=== PATIENT | female | born 1965 | race Caucasian/White ===

== ENCOUNTER 2016-11-10 16:48 | Observation (INO) ==
--- NOTE | 2016-11-10 17:41 | Emergency Department Note ---
Disposition Clinical Impression: Dehydration, Urinary tract infection, Conjunctivitis Disposition: Admitted As Inpatient Condition: Fair Referrals: Mamadou Marcus MD [Primary Care Provider] - Forms: ED Satisfaction Letter Time of Disposition: 21:05 (ok osv) Female Urogenital HPI - General Chief complaint: ED Urogenital-Female Stated complaint: unable to urinate properly, weakness Time Seen by Provider: 11/10/16 16:55 Source: patient Mode of arrival: ambulatory Limitations: no limitations Nursing Notes Reviewed: Yes Vital Signs Reviewed: Yes - History of Present Illness HPI Narrative: 51-year-old female seen a couple days ago for urinary tract infection. Possibly passed kidney stone now presents back to the emergency room stating that she is having flank pain dysuria urgency frequency going small amounts and has not really gone much today denies any blurred vision double was loss vision chest pinches pressure palpitations cough hemoptysis or sputum production Pt Subjective Complaint: dysuria, "UTI" Onset (ago): day(s) (3-4) Location: suprapubic Severity: moderate Severity scale (1-10): 5 Quality: cramping Improves with: none Worsens with: urination Urinary Symptoms: dysuria, urgency, frequency, foul smelling urine - Related Data Home Medications Medication Instructions Recorded Confirmed Acetaminophen/Butalbital/Caffe 1 tab PO DAILY PRN 05/10/15 10/26/16 [Fioricet] Albuterol Sulfate [Albuterol 2 puff IH BID PRN 05/10/15 10/26/16 Inhaler] Amitriptyline [Elavil] 25 mg PO HS 05/10/15 10/26/16 Clopidogrel [Plavix] 75 mg PO DAILY 05/10/15 10/26/16 Cyanocobalamin (B-12) [Vitamin B12] 1,000 mcg IM QMONTH 05/10/15 10/26/16 Duloxetine HCl [Cymbalta] 60 mg PO DAILY 05/10/15 10/26/16 Gabapentin [Neurontin] 800 mg PO TID 05/10/15 10/26/16 Levothyroxine [Synthroid] 50 mcg PO DAILY 05/10/15 10/26/16 Lisinopril [Zestril] 40 mg PO DAILY 05/10/15 10/26/16 Oxybutynin [Ditropan] 15 mg PO BID 05/10/15 10/26/16 Oxygen 2 l .ROUTE DAILY 05/10/15 10/26/16 Simvastatin [Zocor] 20 mg PO HS 05/10/15 10/26/16 Nitroglycerin [Nitrostat] 0.4 mg SL AD PRN 03/08/16 10/26/16 Fluticasone Propionate Nasal 50 mcg NS HS 05/15/16 10/26/16 [Flonase] Isosorbide MONOnitrate (24 HR) 30 mg PO DAILY 05/15/16 10/26/16 [Imdur] Norethindrone Acetate 5 mg PO DAILY 05/15/16 10/26/16 Docusate [Colace] 100 mg PO BID 10/26/16 10/26/16 Lidocaine Patch [Lidoderm 5% patch] 1 each TP DAILY 10/26/16 10/26/16 Metoprolol [Lopressor] 25 mg PO BID 10/26/16 10/26/16 Polyethylene Glycol 3350 [MiraLAX 1 scoop PO DAILY 10/26/16 10/26/16 Powder Bulk 17.9 Oz] Simethicone [Gas Relief] 125 mg PO QID PRN 10/26/16 10/26/16 Zonisamide [Zonegran] 100 mg PO DAILY 10/26/16 10/26/16 Previous Rx's Medication Instructions Recorded Cholecalciferol (D-3) [Vitamin D] 2,000 unit PO DAILY #60 tablet 03/17/16 Ferrous Sulfate 325 mg PO TIDWM 30 Days 05/17/16 HYDROcodone/Acet 5/325 mg [[place] 1 tab PO Q6H PRN #28 tab 10/26/16 5-325 mg] Ondansetron [Zofran] 8 mg PO Q8HR #10 tablet 10/26/16 Docusate Sodium [Colace] 100 mg PO BID #20 capsule 11/07/16 Ketorolac [Toradol] 10 mg PO Q6HR #15 tablet 11/07/16 Sulfamethoxazole/Trimeth DS 1 each PO BID #28 tablet 11/07/16 [Bactrim DS] Allergies Allergy/AdvReac Type Severity Reaction Status Date / Time ciprofloxacin Allergy Gastrointestinal Verified 10/26/16 12:31 Upset Penicillins [PCN] AdvReac Intermediate Gastrointestinal Verified 10/26/16 12:31 Upset aspirin [ASA] AdvReac Mild Gastrointestinal Verified 10/26/16 12:31 Upset All systems ED: reviewed and negative except as stated. Constitutional: Reports: fever, chills. Denies: weakness Eyes: Reports: eye discharge ENT ED: Denies: ear pain, throat pain, congestion Cardiovascular: Denies: chest pain, palpitations Respiratory: Denies: dyspnea Gastrointestinal: Denies: abdominal pain, nausea Genitourinary: Reports: urgency, dysuria, frequency, other (decresed amount) Musculoskeletal: Denies: neck pain Integumentary: Denies: abrasion Neurological: Denies: headache Psychiatric: Denies: anxiety Endocrine: Denies: heat or cold intolerance Hematological/Lymphatic: Denies: easy bruising Allergic/Immunologic: Denies: facial swelling Past Medical History - Past Medical History Attestation: Yes The following information was validated with the patient. Source: patient, old records reviewed, nursing notes reviewed Medical history: Reports: arthritis, asthma, cancer, CVA, diabetes, GERD, hyperlipidemia, hypertension, migraine, myocardial infarction, renal disease, thyroid disease, TIA, other Surgical history: Reports: breast surgery, , cataract, other Psychiatric history: Reports: anxiety, depression FIRER BISQUE KILN history: Reports: no FIRER BISQUE KILN history, other - Social History Smoking Status: Former smoker Smokeless Tobacco Status: No Alcohol use: Reports: none Drug use: Reports: none Physical Exam - General Limitations: no limitations General appearance: alert, in no apparent distress, anxious, obese - Head Head exam: atraumatic, normocephalic, normal inspection - Eye Eye exam: Present: PERRL, EOMI, conjunctival injection - ENT ENT exam: normal exam, normal oropharynx, mucous membranes moist, TM's normal bilaterally, normal external ear exam - Neck Neck exam: Present: normal inspection, full ROM, trachea midline - Chest Chest inspection: Present: normal inspection, symmetric chest wall rise - Respiratory Respiratory exam: Present: normal lung sounds bilaterally, wheezes, prolonged expiratory phase. Absent: respiratory distress - Cardiovascular Cardiovascular exam: Present: regular rate, normal rhythm, normal heart sounds - Abdominal Exam Abdominal exam: Present: soft, Non-Tender, normal bowel sounds. Absent: mass, pulsatile mass - Extremities Exam Extremities exam: Present: normal inspection, full ROM, normal capillary refill. Absent: tenderness, joint swelling - Expanded Lower Extremity Exam Neurovascular/Tendon exam: Present: normal capillary refill, normal fine/light touch Gait: observed and normal - Back Exam Back exam: Present: normal inspection, full ROM. Absent: muscle spasm - Neurological Exam Neurological exam: Present: alert, oriented X3, CN II-XII intact, normal gait - Psychiatric Psychiatric exam: Present: normal affect, normal mood - Skin Skin exam: Present: warm, dry, intact, normal color Course Course Narrative: pt seen and examined and iv fluids and antibiotics started on eye drops for conjunctivitis due to renal insufficiency new recommended iv hydration and ab' s then home Vital Signs Temperature 97.9 F 11/10/16 16:55 Pulse Rate 89 11/10/16 16:55 Respiratory Rate 18 11/10/16 16:55 Blood Pressure 127/79 11/10/16 16:55 O2 Sat by Pulse Oximetry 95 11/10/16 16:55 Temperature 97.9 F 11/10/16 16:59 Pulse Rate 89 11/10/16 16:59 Respiratory Rate 18 11/10/16 16:59 Blood Pressure 127/79 11/10/16 16:59 O2 Sat by Pulse Oximetry 95 11/10/16 16:59 Oxygen Delivery Oxygen Delivery Room Air Urogenital-Female - MDM Narrative Medical decision making narrative: Pyelonephritis failed outpatient therapy dehydration and acute - Differential Diagnosis Likely: urinary tract infection - Medical Records Medical records reviewed: Yes I reviewed the patient's medical records. - Lab Data Lab results reviewed: Yes I reviewed the patient's lab results. Result diagrams: 11/10/16 19:34 11/10/16 19:34 Lab Results 11/10/16 11/10/16 11/10/16 Range/Units 17:49 19:34 19:34 WBC 7.1 (4.3-11.1) K/mcL RBC 4.15 (3.82-4.97) M/mcL Hgb 11.3 L (11.5-15.4) g/dL Hct 36.1 (35.3-44.9) % MCV 87.0 (83.0-100.0) fL MCH 27.2 L (28.0-33.3) pg MCHC 31.3 L (31.6-35.5) g/dL RDW 18.2 H (11.5-14.5) % Plt Count 333 (140-400) K/mcL MPV 9.1 L (9.4-12.4) fL Immature Gran % 0.3 (0-4) % Seg Neutrophils % 59.8 % Lymphocytes % 30.9 % Monocytes % 6.5 % Eosinophils % 2.1 % Basophils % 0.4 % Neutrophils # 4.3 (1.6-8.9) K/mcL Lymphocytes # 2.2 (0.6-4.6) K/mcL Monocytes # 0.5 (0.0-1.3) K/mcL Eosinophils # 0.2 (0.0-0.6) K/mcL Basophils # 0.0 (0.0-0.2) K/mcL Sodium 138 (136-145) mEq/L Potassium 4.9 H (3.5-4.5) mEq/L Chloride 112 H (98-109) mEq/L Carbon Dioxide 14 L (19-29) mEq/L BUN 38 H (7-20) mg/dL Creatinine 2.31 H (0.57-1.11) mg/dL Est GFR ( Amer) 27 L (> 60) Est GFR (Non-Af Amer) 22 L (> 60) BUN/Creatinine Ratio 16 (6-26) Glucose 101 H (70-99) mg/dL Calculated Osmolality 295 (280-300) Calcium 8.7 (8.6-10.8) mg/dL Urine Color Yellow (Yellow) Urine Clarity Cloudy A (Clear) Urine pH 5.0 (5.0-8.0) pH Units Ur Specific Jerome >= 1.030 H (1.010-1.025) Urine Protein 30 H (Neg-Trace) mg/dL Urine Glucose (UA) Normal (Normal) mg/dL Urine Ketones 15 H (Negative) mg/dL Urine Blood Trace-intact H (Negative) Urine Nitrite Negative (Negative) Urine Bilirubin Large H (Negative) Urine Urobilinogen Normal (Normal) mg/dL Ur Leukocyte Esterase Small H (Negative) Urine Microscopic WBC 50-100 H (0-3) per hpf Ur Squamous Epith Cells Moderate H (None-Few) per lpf Urine Bacteria Few (None-Few) per hpf Ur Culture Indicated? YES A (NO) Critical Care Time Critical Care Time: No
[2016-11-10 17:57] LABS: Bilirubin,Urine Large (Negative); Blood,Urine Trace-intact (Negative); Clarity,Urine Cloudy (Clear); Color,Urine Yellow (Yellow); Glucose,Urine (UA) Normal (Normal); Ketones,Urine 15 mg/dL (Negative); Leukocyte Esterase,Urine Small (Negative); Nitrite,Urine Negative (Negative); Protein,Urine 30 mg/dL (Neg-Trace); Specific Gravity,Urine >= 1.030 (1.010-1.025); Urobilinogen,Urine Normal (Normal)
[2016-11-10 18:00] LABS: Squamous Epithelial Cell,Urine Moderate per lpf (None-Few); WBC,Urine 50-100 per hpf (0-3)
[2016-11-10 18:01] LABS: Bacteria,Urine Few per hpf (None-Few)
[2016-11-10] MEDS ORDERED: CefTRIAXone 1,000 MG in D5% in Water (Mini-Bag+) 100 ML IVPB STA (19:04)
[2016-11-10] MEDS ORDERED: 0.9 % Sodium Chloride 1,000 ML IVC ONE (19:04)
[2016-11-10 19:43] LABS: Basophils % 0.4 %; Eosinophils # 0.2 K/mcL (0.0-0.6); Eosinophils % 2.1 %; Hematocrit 36.1 % (35.3-44.9); Hemoglobin 11.3 g/dL (11.5-15.4); Immature Granulocytes % 0.3 % (0-4); Lymphocytes # 2.2 K/mcL (0.6-4.6); Lymphocytes % 30.9 %; Mean Corpuscular HGB Conc 31.3 g/dL (31.6-35.5); Mean Corpuscular Hemoglobin 27.2 pg (28.0-33.3); Mean Platelet Volume 9.1 fL (9.4-12.4); Monocytes # 0.5 K/mcL (0.0-1.3); Monocytes % 6.5 %; Neutrophils # 4.3 K/mcL (1.6-8.9); Platelet Count 333 K/mcL (140-400); Red Blood Count 4.15 M/mcL (3.82-4.97); Red Cell Distribution Width 18.2 % (11.5-14.5); Segmented Neutrophils % 59.8 %
[2016-11-10 19:58] LABS: Calcium 8.7 mg/dL (8.6-10.8); Potassium 4.9 mEq/L (3.5-4.5)
[2016-11-10] MEDS ORDERED: Nicotine 21 MG PATCH.TD24 TD SCH (21:15)
[2016-11-10] MEDS ORDERED: Ondansetron 4 MG/2 ML VIAL IVP PRN (22:19)
[2016-11-10] MEDS ORDERED: Acetaminophen 325 MG TABLET PO PRN (22:19)
[2016-11-10] MEDS ORDERED: Simethicone 80 MG TAB.CHEW PO PRN (22:19)
[2016-11-10] MEDS ORDERED: Naloxone 0.4 MG/ML INJ IVP PRN (22:19)
[2016-11-10] MEDS ORDERED: Nitroglycerin 0.4 MG TAB.SUBL SL PRN (22:19)
[2016-11-10] MEDS ORDERED: Acetaminophen/Butalbital/CaffeineTABLET PO PRN (22:19)
[2016-11-10] MEDS: 0.9 % Sodium Chloride 1,000 ML IVC SCH (23:33)
[2016-11-11 05:43] LABS: Basophils % 0.4 %; Eosinophils # 0.1 K/mcL (0.0-0.6); Eosinophils % 2.5 %; Hematocrit 35.4 % (35.3-44.9); Hemoglobin 10.8 g/dL (11.5-15.4); Immature Granulocytes % 0.4 % (0-4); Lymphocytes # 1.9 K/mcL (0.6-4.6); Lymphocytes % 33.2 %; Mean Corpuscular HGB Conc 30.5 g/dL (31.6-35.5); Mean Corpuscular Hemoglobin 27.5 pg (28.0-33.3); Mean Corpuscular Volume 90.1 fL (83.0-100.0); Mean Platelet Volume 9.1 fL (9.4-12.4); Monocytes # 0.5 K/mcL (0.0-1.3); Monocytes % 8.5 %; Neutrophils # 3.1 K/mcL (1.6-8.9); Platelet Count 256 K/mcL (140-400); Red Blood Count 3.93 M/mcL (3.82-4.97); Red Cell Distribution Width 18.1 % (11.5-14.5)
[2016-11-11 05:56] LABS: Potassium 4.4 mEq/L (3.5-4.5)
[2016-11-11] MEDS: 0.9 % Sodium Chloride 1,000 ML IVC SCH ×2 (07:40→18:49)
[2016-11-11] MEDS ORDERED: NON-FORMULARY MEDICATION 1 EACH EACH (Oxygen [Oxygen] 2 L) SCH (09:00)
[2016-11-11] MEDS ORDERED: Gabapentin 400 MG CAPSULE PO SCH (09:00)
[2016-11-11] MEDS: Isosorbide MONOnitrate (24 HR) 30 MG TAB.ER.24H PO SCH (09:33)
[2016-11-11] MEDS: Lisinopril 20 MG TABLET PO SCH (09:37)
[2016-11-11] MEDS: Levothyroxine 25 MCG TABLET PO SCH (09:45)
[2016-11-11] MEDS: Nicotine 21 MG PATCH.TD24 TD SCH (09:48)
[2016-11-11] MEDS ORDERED: Furosemide 20 MG/2 ML VIAL IVP ONE (11:46)
[2016-11-11 12:25] LABS: ABG HCO3 18.3 mEQ/L (21-27); ABG PCO2 38 mmHg (35-45); ABG PO2 101 mmHg (85-104)
[2016-11-11 12:26] LABS: ABG Base Excess -8.2 mEq/L (-2.0 to 3.0); ABG Oxygen Saturation 97 % (95-98); ABG TCO2 19.5 mEq/L (20-26); Blood Gas FiO2 28 %; Blood Gas Liter Flow 2 L/MIN
[2016-11-11] MEDS ORDERED: Tobramycin/Dex Opth DROPS 2.5 ML BOTTLE RIGHT EYE SCH (15:30)
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
[2016-11-11] MEDS: Tobramycin/Dex Opth DROPS 2.5 ML BOTTLE BOTH EYES SCH ×2 (17:09→23:31)
[2016-11-11] MEDS: [UNRECOGNIZED DRUG - OTHER] BOTH EYES SCH ×2 (18:50→18:51)
[2016-11-11] MEDS: Fluticasone Propionate Nasal 50 MCG/SPRAY BOTTLE NS SCH (23:35)
[2016-11-12] MEDS: *HR* HYDROcodone/Acet 5/325 mg TABLET PO PRN ×3 (01:46→23:19)
[2016-11-12] MEDS: Levothyroxine 25 MCG TABLET PO SCH (05:45)
[2016-11-12 06:00] LABS: Basophils % 0.3 %; Eosinophils # 0.1 K/mcL (0.0-0.6); Eosinophils % 3.7 %; Hematocrit 34.3 % (35.3-44.9); Hemoglobin 10.2 g/dL (11.5-15.4); Immature Granulocytes % 0.3 % (0-4); Lymphocytes # 1.4 K/mcL (0.6-4.6); Mean Corpuscular HGB Conc 29.7 g/dL (31.6-35.5); Mean Corpuscular Hemoglobin 27.3 pg (28.0-33.3); Mean Corpuscular Volume 91.7 fL (83.0-100.0); Mean Platelet Volume 9.1 fL (9.4-12.4); Monocytes # 0.2 K/mcL (0.0-1.3); Monocytes % 5.4 %; Neutrophils # 1.9 K/mcL (1.6-8.9); Platelet Count 227 K/mcL (140-400); Red Blood Count 3.74 M/mcL (3.82-4.97); Red Cell Distribution Width 18.3 % (11.5-14.5); Segmented Neutrophils % 52.3 %
[2016-11-12 06:19] LABS: Alanine Aminotransferase 11 Units/L (0-55); Albumin 2.5 g/dL (3.5-5.0); Albumin/Globulin Ratio 0.7 (1.1-2.2); Alkaline Phosphatase 60 Units/L (38-126); Aspartate Amino Transferase 11 Units/L (5-34); BUN/Creatinine Ratio 23 (6-26); Bilirubin,Total 0.2 mg/dL (0.2-1.2); Blood Urea Nitrogen 25 mg/dL (7-20); Calcium 8.3 mg/dL (8.6-10.8); Carbon Dioxide 18 mEq/L (19-29); Chloride 114 mEq/L (98-109); Globulin 3.7 g/dL (2.4-3.5); Glucose 135 mg/dL (70-99); Magnesium 1.6 mg/dL (1.6-2.6); Osmolality,Calculated 296 (280-300); Potassium 4.7 mEq/L (3.5-4.5); Sodium 140 mEq/L (136-145); Total Protein 6.2 g/dL (6.0-8.3); eGFR For African Americans > 60 (> 60); eGFR For Non-African Americans 53 (> 60)
[2016-11-12] MEDS: Tobramycin/Dex Opth DROPS 2.5 ML BOTTLE BOTH EYES SCH ×3 (08:04→20:50)
[2016-11-12] MEDS: Isosorbide MONOnitrate (24 HR) 30 MG TAB.ER.24H PO SCH (08:06)
[2016-11-12] MEDS: Nicotine 21 MG PATCH.TD24 TD SCH (08:07)
[2016-11-12] MEDS: Lisinopril 20 MG TABLET PO SCH (09:29)
--- NOTE | 2016-11-12 10:58 | Internal Med Progress Note ---
Date of Encounter: 11/12/16 Time of Encounter: 10:50 - Assessment and plan (1) Urinary tract infection Current Visit: Yes Status: Acute Assessment and plan: November 11. Remain off antibiotics. Qualifiers: Urinary tract infection type: site unspecified Hematuria presence: with hematuria Qualified Code(s): N39.0 - Urinary tract infection, site not specified; R31.9 - Hematuria, unspecified (2) Hypothyroid Current Visit: No Status: Chronic Assessment and plan: November 11. Continue present dose Synthroid. Qualifiers: Hypothyroidism type: unspecified Qualified Code(s): E03.9 - Hypothyroidism , unspecified (3) Hypomagnesemia Current Visit: No Status: Acute Assessment and plan: November 11. Magnesium level normal at 1.6. (4) Conjunctivitis Current Visit: Yes Status: Acute Assessment and plan: November 11. Continue TobraDex Qualifiers: Conjunctivitis type: unspecified Laterality: bilateral Qualified Code(s) : H10.9 - Unspecified conjunctivitis (5) Acute renal failure Current Visit: No Status: Acute Assessment and plan: November 11. BUN and creatinine have improved to 25 and 1.09 respectively. Continue present management. Anticipate discharge home tomorrow. Qualifiers: Acute renal failure type: unspecified Qualified Code(s): N17.9 - Acute kidney failure, unspecified (6) DM type 2 (diabetes mellitus, type 2) Current Visit: No Status: Chronic Assessment and plan: November 11. Diet controlled. Qualifiers: Diabetes mellitus complication status: with unspecified complications Diabetes mellitus snf insulin use: without snf use Qualified Code( s): E11.8 - Type 2 diabetes mellitus with unspecified complications (7) Anemia Current Visit: No Status: Chronic Assessment and plan: November 11. Anemia testing results pending Qualifiers: Anemia type: iron deficiency Iron deficiency anemia type: other iron deficiency Qualified Code(s): D50.8 - Other iron deficiency anemias - Subjective Interval history: November 12. She has no new complaints except mild abdominal discomfort. - Constitutional Vitals: Temp Pulse Resp BP Pulse Ox 98.3 F 75 24 131/83 98 11/12/16 07:46 11/12/16 07:46 11/12/16 07:46 11/12/16 07:46 11/12/16 07:46 Exam: She is lying in bed and appears to be resting comfortably. Her extremities show no edema. I reviewed her medications and lab results. Internal Medicine: Result - Labs CBC & Chem 7: 11/12/16 05:25 11/12/16 05:25 Labs: Short CBC 11/12/16 Range/Units 05:25 WBC 3.6 L (4.3-11.1) K/mcL Hgb 10.2 L (11.5-15.4) g/dL Hct 34.3 L (35.3-44.9) % Plt Count 227 (140-400) K/mcL Neutrophils # 1.9 (1.6-8.9) K/mcL BMP 11/12/16 05:25 Sodium 140 Potassium 4.7 H Chloride 114 H Carbon Dioxide 18 L BUN 25 H D Creatinine 1.09 Glucose 135 H Calcium 8.3 L Cardiac Enzymes 11/11/16 Range/Units 16:10 Troponin I 0.01 (0-0.03) ng/mL Liver Function 11/12/16 Range/Units 05:25 Total Bilirubin 0.2 (0.2-1.2) mg/dL AST 11 (5-34) Units/L ALT 11 (0-55) Units/L Alkaline Phosphatase 60 (38-126) Units/L Albumin 2.5 L (3.5-5.0) g/dL - ABG Interpretation ABG results: ABG ABG pH 7.30 pH Units (7.32-7.45) L 11/11/16 12:11 ABG pCO2 38 mmHg (35-45) 11/11/16 12:11 ABG pO2 101 mmHg (85-104) 11/11/16 12:11 ABG O2 Saturation 97 % (95-98) 11/11/16 12:11 PT/INR, D-dimer D-Dimer 691 ng/mLFEU (0-500) H 11/11/16 16:10 Consult Discharge Plan - Plan Referrals: Mamadou Marcus MD [Primary Care Provider] - 1 week
[2016-11-12 17:03] LABS: % Iron Saturation 51 % (15-50); Iron 214 mcg/dL (50-170); Transferrin 300 mg/dL (180-382)
[2016-11-12 17:24] LABS: Ferritin 19 ng/ml (5-204)
[2016-11-12 17:38] LABS: Folate 12.3 ng/mL (7.0-31.4)
--- NOTE | 2016-11-12 17:54 | Electrocardiograph Report ---
[address] [address] Test Date: 2016-11-11 Pat Name: Farnaz Franco Department: [id number] Room: [facility] Gender: F Form Setter: Fredis : 1965 Requested By: Eddie Garcia Order Number: [id number] Reading MD: Katie Shields Measurements Intervals [place] Rate: 57 P: 31 [place]: 182 QRS: 6 QRSD: 100 T: 3 QT: 410 QTc: 404 Interpretive Statements SINUS BRADYCARDIA Electronically Signed On 11-12-2016 17:52:43 EDT by Katie Shields
[2016-11-12] MEDS: Fluticasone Propionate Nasal 50 MCG/SPRAY BOTTLE NS SCH (20:48)
[2016-11-13] MEDS: Levothyroxine 25 MCG TABLET PO SCH (05:54)
[2016-11-13] MEDS: *HR* HYDROcodone/Acet 5/325 mg TABLET PO PRN (05:54)
[2016-11-13] MEDS: Tobramycin/Dex Opth DROPS 2.5 ML BOTTLE BOTH EYES SCH (09:03)
[2016-11-13] MEDS: Nicotine 21 MG PATCH.TD24 TD SCH (09:04)
[2016-11-13] MEDS: Isosorbide MONOnitrate (24 HR) 30 MG TAB.ER.24H PO SCH (09:04)
[2016-11-13] MEDS: Lisinopril 20 MG TABLET PO SCH (09:12)
[2016-11-13] MEDS ORDERED: Ondansetron ODT 4 MG TAB.RAPDIS SL PRN (09:26)
[2016-11-13 10:11] VITALS: BP 142/87
--- NOTE | 2016-11-13 10:37 | Discharge Summary ---
Date of Encounter: 11/13/16 Time of Encounter: 10:30 - Discharge Diagnosis (1) Acute renal failure Priority: Primary Status: Acute Qualifiers: Acute renal failure type: unspecified Qualified Code(s): N17.9 - Acute kidney failure, unspecified (2) Urinary tract infection Priority: Secondary Status: Resolved Qualifiers: Urinary tract infection type: site unspecified Hematuria presence: with hematuria Qualified Code(s): N39.0 - Urinary tract infection, site not specified; R31.9 - Hematuria, unspecified (3) Hypothyroid Priority: Secondary Status: Chronic Qualifiers: Hypothyroidism type: unspecified Qualified Code(s): E03.9 - Hypothyroidism , unspecified (4) Conjunctivitis Priority: Secondary Status: Acute Qualifiers: Conjunctivitis type: unspecified Laterality: bilateral Qualified Code(s) : H10.9 - Unspecified conjunctivitis (5) DM type 2 (diabetes mellitus, type 2) Priority: Secondary Status: Chronic Qualifiers: Diabetes mellitus complication status: with unspecified complications Diabetes mellitus correction insulin use: without correction use Qualified Code( s): E11.8 - Type 2 diabetes mellitus with unspecified complications (6) Anemia Priority: Secondary Status: Chronic Qualifiers: Anemia type: iron deficiency Iron deficiency anemia type: other iron deficiency Qualified Code(s): D50.8 - Other iron deficiency anemias - Discharge Medications Home Medications: Acetaminophen/Butalbital/Caffe [Fioricet] 1 tab PO DAILY PRN 05/10/15 [History] Albuterol Sulfate [Albuterol Inhaler] 2 puff IH BID PRN 05/10/15 [History] Amitriptyline [Elavil] 25 mg PO HS 05/10/15 [History] Clopidogrel [Plavix] 75 mg PO DAILY 05/10/15 [History] Cyanocobalamin (B-12) [Vitamin B12] 1,000 mcg IM QMONTH 05/10/15 [History] Duloxetine HCl [Cymbalta] 60 mg PO DAILY 05/10/15 [History] Gabapentin [Neurontin] 800 mg PO TID 05/10/15 [History] Levothyroxine [Synthroid] 50 mcg PO DAILY 05/10/15 [History] Lisinopril [Zestril] 40 mg PO DAILY 05/10/15 [History] Oxybutynin [Ditropan] 5 mg PO BID 05/10/15 [History] Oxygen 2 l .ROUTE DAILY 05/10/15 [History] Simvastatin [Zocor] 20 mg PO HS 05/10/15 [History] Nitroglycerin [Nitrostat] 0.4 mg SL AD PRN 03/08/16 [History] Cholecalciferol (D-3) [Vitamin D] 2,000 unit PO DAILY #60 tablet 03/17/16 [Rx] Fluticasone Propionate Nasal [Flonase] 50 mcg NS HS 05/15/16 [History] Isosorbide MONOnitrate (24 HR) [Imdur] 30 mg PO DAILY 05/15/16 [History] Norethindrone Acetate 5 mg PO DAILY 05/15/16 [History] Docusate [Colace] 100 mg PO BID 10/26/16 [History] HYDROcodone/Acet 5/325 mg [Dalton 5-325 mg] 1 tab PO Q6H PRN #28 tab 10/26/16 [Rx ] Lidocaine Patch [Lidoderm 5% patch] 1 each TP DAILY 10/26/16 [History] Metoprolol [Lopressor] 25 mg PO BID 10/26/16 [History] Ondansetron [Zofran] 8 mg PO Q8HR #10 tablet 10/26/16 [Rx] Polyethylene Glycol 3350 [MiraLAX Powder Bulk 17.9 Oz] 1 scoop PO DAILY [History] Simethicone [Gas Relief] 125 mg PO QID PRN 10/26/16 [History] Zonisamide [Zonegran] 100 mg PO DAILY 10/26/16 [History] Docusate Sodium [Colace] 100 mg PO BID #20 capsule 11/07/16 [Rx] Allergies/Adverse Reactions: Allergies ciprofloxacin Allergy (Verified 10/26/16 12:31) Gastrointestinal Upset Penicillins [PCN] Adverse Reaction (Intermediate, Verified 10/26/16 12:31) Gastrointestinal Upset aspirin [ASA] Adverse Reaction (Mild, Verified 10/26/16 12:31) Gastrointestinal Upset Procedures/tests Complete & Pending: Procedures Performed prior 72 hours Category Date Time Status ECG 12 lead ECG [ECG] Stat Y 11/11/16 15:28 Completed Date of admission: 11/10/16 21:57 Primary care physician: Mamadou Marcus MD - Patient Status Disposition: Home, Self-Care Condition: Fair Functional capacity at discharge: independent ambulation Overall status at discharge: patient is progressing back to baseline - Discharge Instructions Follow Up With: Mamadou Marcus MD [Primary Care Provider] - 1 week - Diet and Activity Activity: resume usual activities as tolerated Diet: advance to your usual diet Hospital course: Ms. Franco is a 51 year old female who came to emergency room stating she had worsening pain in her left flank and back area over the past 1-2 days. She had been seen in emergency room at [facility] 11/07/2016 and was diagnosed with UTI. She was given Bactrim DS and Toradol. She states she only took one Toradol but had taken the Bactrim DS twice a day as prescribed. She was evaluated in emergency room and found to have acute renal insufficiency and evidence of UTI. She was admitted to [facility] floor for ongoing care needs. Initial orders were written by the emergency room physician. I saw her on November 11 and performed the history and physical. Urine culture returned showing grossly mixed organisms. Antibiotics were not continued. Her ketorolac was held in addition to Septra. Her azotemia improved significantly with BUN and creatinine improving to 25 and 1.09 respectively by November 12 with estimated GFR 53. She will remain off Septra and NSAID medications at discharge. Anemia testing showed iron 214 (high), transferrin saturation 51% (high), transferrin 300, ferritin 19, B12 293, and folate 12.3. Ferrous sulfate will be discontinued. She was given TobraDex and her conjunctivitis improved. This will not be continued at discharge. There were no other new problems and on November 13 she was stable for discharge home. She will follow with her PCP Dr. Mamadou Marcus within 1 week. - Time Spent with Patient Total time spent providing and/or coordinating discharge services: - Constitutional Vitals: Temp Pulse Resp BP Pulse Ox 98.8 F 73 18 142/87 94 11/13/16 10:08 11/13/16 10:08 11/13/16 10:08 11/13/16 10:11/13/16 10:08
== END 2016-11-13 13:00 | disposition home or self-care (01) ==
LOC: EMEROOPIK 16:48 → INPPIK 16:48
PROVIDERS: ADMIT Internal Medicine; ATTEND Internal Medicine

== ENCOUNTER 2017-12-26 16:38 | Observation (INO) ==
[2017-12-26] MEDS ORDERED: 0.9 % Sodium Chloride 1,000 ML IVC ONE (16:41)
[2017-12-26] MEDS ORDERED: cefTRIAXone 2,000 MG in 0.9 % Sodium Chloride Mini Bag 100 ML IVPB ONE (16:41)
[2017-12-26] MEDS ORDERED: Ondansetron 4 MG/2 ML VIAL IVP ONE (16:42)
[2017-12-26] MEDS ORDERED: *HR* Nalbuphine 10 MG/ML AMPUL IVP ONE ×2 (16:43→18:43)
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
[2017-12-26] MEDS ORDERED: 0.9 % Sodium Chloride 1,000 ML IVC SCH (16:45)
[2017-12-26 17:13] LABS: Basophils % 0.2 %; Eosinophils % 0.2 %; Hematocrit 38.4 % (35.3-44.9); Hemoglobin 12.9 g/dL (11.5-15.4); Immature Granulocytes % 0.3 % (0-4); Lymphocytes # 1.2 K/mcL (0.6-4.6); Lymphocytes % 17.7 %; Mean Corpuscular HGB Conc 33.6 g/dL (31.6-35.5); Mean Corpuscular Hemoglobin 29.7 pg (28.0-33.3); Mean Corpuscular Volume 88.3 fL (83.0-100.0); Mean Platelet Volume 9.2 fL (9.4-12.4); Monocytes # 0.4 K/mcL (0.0-1.3); Monocytes % 5.3 %; Neutrophils # 5.1 K/mcL (1.6-8.9); Platelet Count 220 K/mcL (140-400); Red Blood Count 4.35 M/mcL (3.82-4.97); Red Cell Distribution Width 13.7 % (11.5-14.5); Segmented Neutrophils % 76.3 %
[2017-12-26 17:32] LABS: Albumin 3.9 g/dL (3.5-5.7); BUN/Creatinine Ratio 15 (6-26); Bilirubin,Direct 0.1 mg/dL (0.0-0.2); Bilirubin,Indirect 0.4 mg/dL (0.0-1.2); Bilirubin,Total 0.5 mg/dL (0.3-1.0); Blood Urea Nitrogen 11 mg/dL (6-20); Calcium 9.5 mg/dL (8.6-10.3); Carbon Dioxide 25 mEq/L (23-29); Chloride 100 mEq/L (98-107); Globulin 3.9 g/dL (2.4-3.5); Glucose 142 mg/dL (70-105); Osmolality,Calculated 284 (280-300); Potassium 3.3 mEq/L (3.5-5.1); Sodium 136 mEq/L (136-145); Total Protein 7.8 g/dL (6.4-8.9); eGFR For African Americans > 60 (> 60); eGFR For Non-African Americans > 60 (> 60)
[2017-12-26 17:43] LABS: Platelet Estimate Normal (Normal)
[2017-12-26 18:00] LABS: Bilirubin,Urine Negative (Negative); Blood,Urine Moderate (Negative); Clarity,Urine Cloudy (Clear); Color,Urine Yellow (Yellow); Glucose,Urine (UA) Normal (Normal); Ketones,Urine Negative (Negative); Leukocyte Esterase,Urine Large (Negative); Nitrite,Urine Negative (Negative); Protein,Urine 100 mg/dL (Neg-Trace); Urobilinogen,Urine Normal (Normal)
[2017-12-26 18:06] LABS: Renal Epithelial Cells,Urine Few per hpf (None-Few); Squamous Epithelial Cell,Urine Few per lpf (None-Few); WBC,Urine 50-100 per hpf (0-3)
[2017-12-26 18:07] LABS: Bacteria,Urine Moderate per hpf (None-Few)
[2017-12-26] MEDS ORDERED: TIZANIDINE HCL PO PRN (20:26)
[2017-12-26] MEDS ORDERED: *HR* Nalbuphine 10 MG/ML AMPUL IVP PRN (20:26)
[2017-12-26] MEDS ORDERED: Ondansetron 4 MG/2 ML VIAL IVP PRN (20:26)
[2017-12-26] MEDS ORDERED: Cyanocobalamin (B-12) 1,000 MCG/ML VIAL IM SCH (20:26)
[2017-12-26] MEDS ORDERED: Naloxone 0.4 MG/ML INJ IVP PRN (20:26)
[2017-12-26] MEDS: 0.9 % Sodium Chloride 1,000 ML IVC SCH (22:15)
[2017-12-26] MEDS: Acetaminophen/Butalbital/CaffeineTABLET PO PRN (22:18)
[2017-12-26] MEDS: Gabapentin 400 MG CAPSULE PO SCH (22:18)
[2017-12-26] MEDS: traMADol 50 MG TABLET PO PRN (22:18)
[2017-12-26] MEDS: diazePAM 5 MG TABLET PO SCH (22:18)
[2017-12-26] MEDS: Famotidine 20 MG TABLET PO SCH (22:18)
[2017-12-26] MEDS: Fluticasone Propionate Nasal 50 MCG/SPRAY BOTTLE NS SCH (22:28)
[2017-12-26] MEDS ORDERED: tiZANidine 4 MG TABLET PO PRN (23:20)
[2017-12-27] MEDS: Ondansetron 4 MG/2 ML VIAL IVP PRN ×2 (03:00→17:31)
[2017-12-27] MEDS: 0.9 % Sodium Chloride 1,000 ML IVC SCH (06:26)
[2017-12-27] MEDS: Levothyroxine 25 MCG TABLET PO SCH (06:41)
[2017-12-27] MEDS: Gabapentin 400 MG CAPSULE PO SCH ×3 (08:49→20:13)
[2017-12-27] MEDS: (Linaclotide [Linzess] 72 MCG) PO SCH (08:49)
[2017-12-27] MEDS: Lisinopril 20 MG TABLET PO SCH (08:50)
[2017-12-27] MEDS: cefTRIAXone 2,000 MG in 0.9 % Sodium Chloride Mini Bag 100 ML IVPB SCH (08:58)
[2017-12-27] MEDS: Cholecalciferol (D-3) 1,000 UNIT TABLET PO SCH (09:00)
[2017-12-27] MEDS: Famotidine 20 MG TABLET PO SCH ×2 (09:01→20:14)
[2017-12-27] MEDS: diazePAM 5 MG TABLET PO SCH (09:01)
[2017-12-27] MEDS: Fluticasone Propionate Nasal 50 MCG/SPRAY BOTTLE NS SCH ×2 (09:02→20:14)
[2017-12-27] MEDS: Isosorbide MONOnitrate (24 HR) 30 MG TAB.ER.24H PO SCH (09:05)
[2017-12-27] MEDS: traMADol 50 MG TABLET PO PRN (10:05)
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
[2017-12-27] MEDS ORDERED: ALPRAZolam 1 MG TABLET PO PRN (18:10)
[2017-12-27] MEDS: 0.45 % Sodium Chloride w/KCl 20 MEQ/1,000 ML MLS IVC SCH (18:34)
[2017-12-27] MEDS: Acetaminophen/Butalbital/CaffeineTABLET PO PRN (20:12)
[2017-12-28] MEDS: Levothyroxine 25 MCG TABLET PO SCH (06:18)
[2017-12-28] MEDS: traMADol 50 MG TABLET PO PRN (06:18)
[2017-12-28 06:58] LABS: Basophils % 0.4 %; Eosinophils # 0.2 K/mcL (0.0-0.6); Eosinophils % 3.6 %; Hematocrit 37.9 % (35.3-44.9); Hemoglobin 11.7 g/dL (11.5-15.4); Immature Granulocytes % 0.2 % (0-4); Lymphocytes % 38.4 %; Mean Corpuscular HGB Conc 30.9 g/dL (31.6-35.5); Mean Corpuscular Hemoglobin 29.5 pg (28.0-33.3); Mean Corpuscular Volume 95.7 fL (83.0-100.0); Mean Platelet Volume 9.2 fL (9.4-12.4); Monocytes # 0.5 K/mcL (0.0-1.3); Monocytes % 9.8 %; Neutrophils # 2.5 K/mcL (1.6-8.9); Platelet Count 179 K/mcL (140-400); Red Blood Count 3.96 M/mcL (3.82-4.97); Red Cell Distribution Width 14.6 % (11.5-14.5); Segmented Neutrophils % 47.6 %
[2017-12-28 07:00] VITALS: BP 132/91
[2017-12-28 07:12] LABS: BUN/Creatinine Ratio 22 (6-26); Blood Urea Nitrogen 23 mg/dL (6-20); Calcium 8.3 mg/dL (8.6-10.3); Carbon Dioxide 25 mEq/L (23-29); Chloride 110 mEq/L (98-107); Glucose 153 mg/dL (70-105); Osmolality,Calculated 297 (280-300); Potassium 4.2 mEq/L (3.5-5.1); Sodium 140 mEq/L (136-145); eGFR For African Americans > 60 (> 60); eGFR For Non-African Americans 57 (> 60)
[2017-12-28] MEDS: Cholecalciferol (D-3) 1,000 UNIT TABLET PO SCH (08:24)
[2017-12-28] MEDS: Lisinopril 20 MG TABLET PO SCH (08:24)
[2017-12-28] MEDS: Isosorbide MONOnitrate (24 HR) 30 MG TAB.ER.24H PO SCH (08:24)
[2017-12-28] MEDS: Gabapentin 400 MG CAPSULE PO SCH (08:24)
[2017-12-28] MEDS: Famotidine 20 MG TABLET PO SCH (08:24)
[2017-12-28] MEDS: (Linaclotide [Linzess] 72 MCG) PO SCH (08:25)
[2017-12-28] MEDS: cefTRIAXone 2,000 MG in 0.9 % Sodium Chloride Mini Bag 100 ML IVPB SCH (08:25)
[2017-12-28] MEDS: 0.45 % Sodium Chloride w/KCl 20 MEQ/1,000 ML MLS IVC SCH (08:26)
[2017-12-28] MEDS: Fluticasone Propionate Nasal 50 MCG/SPRAY BOTTLE NS SCH (08:27)
--- NOTE | 2017-12-28 10:08 | Discharge Summary ---
Date of Encounter: 12/28/17 Time of Encounter: 10:00 - Discharge Diagnosis (1) Urinary tract infection Priority: Primary Status: Acute Qualifiers: Urinary tract infection type: acute cystitis Hematuria presence: with hematuria Qualified Code(s): N30.01 - Acute cystitis with hematuria (2) Vomiting Priority: Secondary Status: Resolved Qualifiers: Vomiting type: unspecified Vomiting Intractability: non-intractable Nausea presence: with nausea Qualified Code(s): R11.2 - Nausea with vomiting, unspecified (3) Hypokalemia Priority: Secondary Status: Resolved (4) Hypomagnesemia Priority: Secondary Status: Resolved Hospital course: Ms. Gilbert is a 52 year old female who reports onset of vomiting December 24. She denies diarrhea. She had frequent urination and dysuria with lower midline and RLQ discomfort. She went to [facility] and was referred to emergency room. She was evaluated and admitted to [facility] floor for ongoing care needs. Initial orders were written by the emergency room physician. I saw her on December 27 and performed a history and physical. She was started empirically on Rocephin through emergency room for UTI. Urine culture returned showing mixed organisms. She will continue with Septra DS and Lactobacillus for 3 days at discharge. She had no further vomiting after I saw her December 27. Her abdominal pain resolved by day of discharge. Supplement potassium was given and hypokalemia resolved. Magnesium level returned low at 1.0. She was given 1 g magnesium sulfate IV and magnesium level normalized to 1.6. She will be discharged home and follow with her PCP Dr. Marcus within 1 week. I told her she could discuss with him changing from Valium to a shorter acting benzodiazepine to lessen prolonged sedation. - Time Spent with Patient Total time spent providing and/or coordinating discharge services: - Discharge Medications Prescriptions: Lactobacillus [Culturelle] 1 each PO BID #6 cap.sprink Sulfamethoxazole/Trimeth DS [Bactrim DS] 1 each PO BID #6 tablet Home Medications: Acetaminophen [Extra Strength Non-Aspirin] 500 mg PO QID PRN 09/18/17 [History] Acetaminophen/Butalbital/Caffe [Fioricet] 1 tab PO Q4H PRN 09/18/17 [History] Albuterol Sulfate [Proair Hfa] 2 puff IH Q4H 09/18/17 [History] Amitriptyline [Elavil] 25 mg PO DAILY 09/18/17 [History] Cholecalciferol (D-3) [Vitamin D] 2,000 unit PO DAILY 09/18/17 [History] Clopidogrel Bisulfate [Plavix] 75 mg PO DAILY 09/18/17 [History] Cyanocobalamin (B-12) [Vitamin B12] 1,000 mcg IM QMONTH 09/18/17 [History] Docusate [Colace] 100 mg PO BID 09/18/17 [History] Duloxetine HCl [Cymbalta] 60 mg PO DAILY 09/18/17 [History] Fluticasone Propionate Nasal [Flonase] 1 spr NS BID 09/18/17 [History] Gabapentin [Neurontin] 800 mg PO TID 09/18/17 [History] Isosorbide MONOnitrate (24 HR) [Imdur] 30 mg PO DAILY 09/18/17 [History] Levothyroxine [Synthroid] 50 mcg PO 0630 09/18/17 [History] Lidocaine [Lidoderm] 1 patch TP Q12H 09/18/17 [History] Linaclotide [Linzess] 72 mcg PO DAILY 09/18/17 [History] Lisinopril [Zestril] 40 mg PO DAILY 09/18/17 [History] Metoprolol [Lopressor] 25 mg PO BID 09/18/17 [History] Norethindrone Acetate [Norethindrone AC (Lupaneta)] 5 mg PO DAILY 09/18/17 [ History] Oxybutynin [Ditropan] 5 mg PO BID PRN 09/18/17 [History] Pantoprazole Sodium [Protonix] 20 mg PO DAILY 09/18/17 [History] Ranitidine HCl [Acid Briar Cutter] 150 mg PO BID 09/18/17 [History] Simvastatin [Zocor] 40 mg PO HS 09/18/17 [History] Tizanidine HCl 1 - 2 tab PO Q8H PRN 09/18/17 [History] Tramadol HCl [Ultram] 50 mg PO QID PRN 09/18/17 [History] Zonisamide [Zonegran] 100 mg PO BID 09/18/17 [History] diazePAM [Valium] 5 mg PO BID 09/18/17 [History] Lactobacillus [Culturelle] 1 each PO BID #6 cap.sprink 12/28/17 [Rx] Sulfamethoxazole/Trimeth DS [Bactrim DS] 1 each PO BID #6 tablet 12/28/17 [Rx] Allergies/Adverse Reactions: 3 Allergy/AdvReac Type Severity Reaction Status Date / Time Penicillins [PCN] AdvReac Intermediate Gastrointestinal Verified 12/26/17 16:39 Upset aspirin [ASA] AdvReac Mild Gastrointestinal Verified 12/26/17 16:39 Upset ciprofloxacin AdvReac Gastrointestinal Verified 12/26/17 16:39 Upset latex AdvReac See Verified 12/26/17 16:39 Comments rice AdvReac Gastrointestinal Verified 12/26/17 16:39 Upset Date of admission: 12/26/17 18:53 Primary care physician: Mamadou Marcus MD - Constitutional Vitals: Temp Pulse Resp BP Pulse Ox 97.4 F L 74 19 132/91 94 12/28/17 06:59 12/28/17 06:59 12/28/17 06:59 12/28/17 06:59 12/28/17 08:37 - Patient Status Disposition: Home, Self-Care Condition: Fair Overall status at discharge: patient is progressing back to baseline - Discharge Instructions Follow Up With: Mamadou Marcus MD [Primary Care Provider] - 1 week - Diet and Activity Activity: resume usual activities as tolerated Diet: advance to your usual diet - VTE Documentation of Mechanical Device: Graduated compression elastic hosiery
[2017-12-29] MEDS ORDERED: cefTRIAXone 2,000 MG in Water for inj. (sterile) 20 ML 20 ML IVPB SCH (09:00)
== END 2017-12-28 12:35 | disposition home or self-care (01) ==
LOC: EMEROOPIK 16:38 → INPPIK 16:38
PROVIDERS: ADMIT Internal Medicine; ATTEND Internal Medicine

== ENCOUNTER 2019-04-17 17:45 | Observation (INO) ==
[2019-04-17] MEDS ORDERED: *HR* HYDROmorphone (PF) 1 MG/ML SYRINGE IVP ONE (18:17)
[2019-04-17] MEDS ORDERED: 0.9 % Sodium Chloride 1,000 ML IVC ONE (18:17)
--- NOTE | 2019-04-17 18:20 | Emergency Department Note ---
Disposition Clinical Impression: Urinary tract infection Qualifiers: Urinary tract infection type: site unspecified Hematuria presence: with hematuria Qualified Code(s): N39.0 - Urinary tract infection, site not specified; R31.9 - Hematuria, unspecified Abdominal pain Qualifiers: Abdominal location: lower abdomen, unspecified Qualified Code(s): R10.30 - Lower abdominal pain, unspecified Disposition: Admitted As Inpatient Condition: Fair Referrals: Franklyn Welch DO [Primary Care Provider] - Forms: ED Satisfaction Letter, Work/School Release Time of Disposition: 20:11 Abdominal Pain HPI - General Chief Complaint: ED Abdominal Pain Stated Complaint: suprapubic pain and n/v Time Seen by Provider: 04/17/19 17:48 Source: patient, family Mode of arrival: private vehicle Limitations: no limitations Nursing Notes Reviewed: Yes Vital Signs Reviewed: Yes - History of Present Illness Pt Subjective Complaint: abdominal pain Onset (ago): week(s) (Worse throughout the course of the day today) Consistency: constant Location: suprapubic Pain Severity: severe Pain Scale: 10 Quality: stabbing, sharp Radiation: back Migration to: no migration Improves with: nothing Worsens with: nothing Context: other (Patient only has one kidney. He was at [facility] mid-March for pyelonephritis and urinary tract infection. No instrumentation was done at that time according to the patient. She got out about 2 weeks ago. Says she has been hurting nonstop for the past 2 weeks. Says she has not been able to eat or drink anything for 2 weeks. Throws up everything she tries to eat or drink for the past 2 weeks. However she only comes in today complaining of lower abdominal pain and dramatically worsened within the past 24 hours.) Associated symptoms: Reports: dysuria. Denies: fever - Related Data Home Medications Medication Instructions Recorded Confirmed Clopidogrel Bisulfate [Plavix] 75 mg PO DAILY 09/18/17 03/06/19 Cyanocobalamin (B-12) [Vitamin B12] 1,000 mcg IM QMONTH 09/18/17 03/06/19 Docusate [Colace] 100 mg PO DAILY 09/18/17 03/06/19 Duloxetine HCl [Cymbalta] 60 mg PO DAILY 09/18/17 03/06/19 Gabapentin [Neurontin] 800 mg PO BID 09/18/17 03/06/19 Isosorbide MONOnitrate (24 HR) 30 mg PO DAILY 09/18/17 03/06/19 [Imdur] Levothyroxine [Synthroid] [place] [address]/18/17 03/06/19 Linaclotide [Linzess] 72 mcg PO DAILY 09/18/17 03/06/19 Lisinopril [Zestril] 40 mg PO DAILY 09/18/17 03/06/19 Metoprolol [Lopressor] 25 mg PO BID 09/18/17 03/06/19 Ranitidine HCl [Acid Environmental Remediation Consultant] 150 mg PO HS 09/18/17 03/06/19 Simvastatin [Zocor] 40 mg PO HS 09/18/17 03/06/19 Tramadol HCl [Ultram] 50 mg PO QID PRN 09/18/17 03/06/19 Zonisamide [Zonegran] 200 mg PO HS 09/18/17 03/06/19 Tizanidine HCl [Zanaflex] 2 mg PO TID PRN 10/13/18 03/06/19 diazePAM [Valium] 2 mg PO BID PRN 10/13/18 03/06/19 Pantoprazole Sodium [Protonix] 20 mg PO DAILY 03/05/19 03/06/19 Tolterodine Tartrate [Detrol] 2 mg PO BID 03/05/19 03/05/19 Cyanocobalamin (Vitamin B-12) 1,000 mcg PO DAILY 03/06/19 03/06/19 [B-12] Ergocalciferol (VITAMIN D2) 50,000 units PO MO 03/06/19 03/06/19 [Vitamin D2] Fluticasone Propionate Nasal 50 mcg NS BID 03/06/19 03/06/19 [Flonase] Norethindrone Acetate 5 mg PO DAILY 03/06/19 03/06/19 Ondansetron HCl [Zofran] 4 mg PO TID PRN 03/06/19 03/06/19 Previous Rx's Medication Instructions Recorded Cefdinir [Omnicef] 300 mg PO BID #14 capsule 03/07/19 Clotrimazole 1% CRM [Lotrimin 1%] 1 appl TP BID #2 tube 03/07/19 Lactobacillus Acidophilus 1 each PO BID #20 capsule 03/07/19 [Acidophilus] Allergies Allergy/AdvReac Type Severity Reaction Status Date / Time Penicillins [PCN] AdvReac Intermediate Gastrointestinal Verified 03/06/19 21:14 Upset, Hives aspirin [ASA] AdvReac Mild Gastrointestinal Verified 03/06/19 21:14 Upset ciprofloxacin AdvReac Gastrointestinal Verified 03/06/19 21:14 Upset latex AdvReac See Verified 03/06/19 21:14 Comments rice AdvReac Gastrointestinal Verified 03/06/19 21:14 Upset All systems ED: reviewed and negative except as stated. Constitutional: Denies: fever, chills ENT ED: Denies: ear pain, throat pain, congestion Cardiovascular: Denies: chest pain, palpitations Respiratory: Denies: cough, dyspnea Gastrointestinal: Reports: abdominal pain Abdominal Pain PMH - Past Medical History Medical history: Reports: asthma, COPD, coronary artery disease, CVA, diabetes, GERD, hyperlipidemia, hypertension, myocardial infarction, renal disease, seizures, thyroid disease, other Female Surgical History: Reports: breast surgery, , orthopedic, other SOCIAL SERVICES history: Reports: no SOCIAL SERVICES history, other Psychiatric history: Reports: anxiety, depression - Social History Smoking status: Former smoker Alcohol use: Reports: none Drug use: Reports: none Physical Exam - General Limitations: no limitations General appearance: alert, other (Moaning in discomfort) - Head Head exam: atraumatic, normocephalic, normal inspection - Eye Eye exam: Present: normal appearance, PERRL, EOMI. Absent: scleral icterus, conjunctival injection - ENT ENT exam: normal exam, normal oropharynx, mucous membranes moist, normal external ear exam - Neck Neck exam: Present: normal inspection, full ROM, trachea midline - Chest Chest inspection: Present: normal inspection, symmetric chest wall rise. Absent: tenderness - Respiratory Respiratory exam: Present: normal lung sounds bilaterally. Absent: respiratory distress, wheezes - Cardiovascular Cardiovascular exam: Present: regular rate, normal rhythm, normal heart sounds - Abdominal Exam Abdominal exam: Present: soft, tenderness (Suprapubically), other (Morbidly obese) - Extremities Exam Extremities exam: Present: normal inspection. Absent: tenderness - Neurological Exam Neurological exam: Present: alert, oriented X3 - Psychiatric Psychiatric exam: Present: normal affect, normal mood - Skin Skin exam: Present: warm, dry. Absent: rash Course Course Narrative: Patient comes in with lower abdominal pain and suprapubic pain. She feels like her pain is more to the left than the right. She claims to have not been able to eat or drink for the 2 weeks that she is been home from the hospital and she is been having this pain since being home from the hospital. That sounds a little odd. She was able to give us urine specimen. I will send her for CT of the abdomen. We have to be careful can she only has one kidney and did have the recent infection. Disposition will be based on diagnostic results and reevaluation. - Reevaluation(s) Reevaluation #1: Urinalysis is still strongly consistent with urinary tract infection. They are still signs of pyelonephritis on the CT although it seems to involve the left side only. However the patient only has one kidney and we can afford that kidney to start getting infected. She is also having pain that comes challenged to get control of. I will admit the patient to the hospital for IV antibiotics. I am paging the hospitalist now. Time: 19:49 - Consultations Consultation #1: Dr. Garcia, hospitalist - I discussed case with the hospitalist. He accepted the patient for admission. Time: 20:10 Vital Signs Temperature 97.7 F 04/17/19 17:46 Pulse Rate 99 04/17/19 17:46 Respiratory Rate 18 04/17/19 17:46 Blood Pressure 170/125 04/17/19 17:46 O2 Sat by Pulse Oximetry 95 04/17/19 17:46 Temperature 97.7 F 04/17/19 17:46 Pulse Rate 85 04/17/19 19:54 Respiratory Rate 18 04/17/19 19:54 Blood Pressure 154/103 04/17/19 19:54 O2 Sat by Pulse Oximetry 96 04/17/19 19:54 Oxygen Delivery Oxygen Delivery Room Air Abdominal Pain - Medical Records Medical records reviewed: Yes I reviewed the patient's medical records. - Lab Data Lab results reviewed: Yes I reviewed the patient's lab results. Result diagrams: 04/17/19 18:37 04/17/19 18:37 Lab Results 04/17/19 04/17/19 04/17/19 Range/Units 18:05 18:37 18:37 WBC 6.1 (4.3-11.1) K/mcL RBC 4.06 (3.82-4.97) M/mcL Hgb 12.1 (11.5-15.4) g/dL Hct 37.4 (35.3-44.9) % MCV 92.1 (83.0-100.0) fL MCH 29.8 (28.0-33.3) pg MCHC 32.4 (31.6-35.5) g/dL RDW 13.5 (11.5-14.5) % Plt Count 262 (140-400) K/mcL MPV 9.0 L (9.4-12.4) fL Immature Gran % 0.2 (0-4) % Seg Neutrophils % 72.8 % Lymphocytes % 19.2 % Monocytes % 6.7 % Eosinophils % 0.8 % Basophils % 0.3 % Neutrophils # 4.5 (1.6-8.9) K/mcL Lymphocytes # 1.2 (0.6-4.6) K/mcL Monocytes # 0.4 (0.0-1.3) K/mcL Eosinophils # 0.1 (0.0-0.6) K/mcL Basophils # 0.0 (0.0-0.2) K/mcL Sodium 139 (136-145) mEq/L Potassium 3.4 L (3.5-5.1) mEq/L Chloride 107 (98-107) mEq/L Carbon Dioxide 21 L (23-29) mEq/L BUN 12 (6-20) mg/dL Creatinine 0.92 (0.60-1.20) mg/dL Est GFR ( Amer) > 60 (> 60) Est GFR (Non-Af Amer) > 60 (> 60) BUN/Creatinine Ratio 13 (6-26) Glucose 134 H (70-105) mg/dL Calculated Osmolality 290 (280-300) Lactic Acid (0.5-2.2) mmol/L Calcium 8.9 (8.6-10.3) mg/dL Ur Specimen Adequacy See below A Urine Color Red A (Yellow) Urine Clarity Cloudy A (Clear) Urine pH 6.0 (5.0-8.0) pH Units Ur Specific [place] 1.030 H (1.010-1.025) Urine Protein 100 H (Neg-Trace) mg/dL Urine Glucose (UA) Normal (Normal) mg/dL Urine Ketones Trace H (Negative) mg/dL Urine Blood Large H (Negative) Urine Nitrite Positive A (Negative) Urine Bilirubin Small H (Negative) Urine Urobilinogen Normal (Normal) mg/dL Ur Leukocyte Esterase Trace H (Negative) Urine Microscopic RBC 50-100 H (0-3) per hpf Urine Microscopic WBC 3-5 H (0-3) per hpf Urine Bacteria Few (None-Few) per hpf Hyaline Casts Few (None-Few) per lpf Urine Mucus Few (Few) Ur Culture Indicated? YES A (NO) 04/17/19 Range/Units 18:37 WBC (4.3-11.1) K/mcL RBC (3.82-4.97) M/mcL Hgb (11.5-15.4) g/dL Hct (35.3-44.9) % MCV (83.0-100.0) fL MCH (28.0-33.3) pg MCHC (31.6-35.5) g/dL RDW (11.5-14.5) % Plt Count (140-400) K/mcL MPV (9.4-12.4) fL Immature Gran % (0-4) % Seg Neutrophils % % Lymphocytes % % Monocytes % % Eosinophils % % Basophils % % Neutrophils # (1.6-8.9) K/mcL Lymphocytes # (0.6-4.6) K/mcL Monocytes # (0.0-1.3) K/mcL Eosinophils # (0.0-0.6) K/mcL Basophils # (0.0-0.2) K/mcL Sodium (136-145) mEq/L Potassium (3.5-5.1) mEq/L Chloride (98-107) mEq/L Carbon Dioxide (23-29) mEq/L BUN (6-20) mg/dL Creatinine (0.60-1.20) mg/dL Est GFR ( Amer) (> 60) Est GFR (Non-Af Amer) (> 60) BUN/Creatinine Ratio (6-26) Glucose (70-105) mg/dL Calculated Osmolality (280-300) Lactic Acid 1.7 (0.5-2.2) mmol/L Calcium (8.6-10.3) mg/dL Ur Specimen Adequacy Urine Color (Yellow) Urine Clarity (Clear) Urine pH (5.0-8.0) pH Units Ur Specific [place] (1.010-1.025) Urine Protein (Neg-Trace) mg/dL Urine Glucose (UA) (Normal) mg/dL Urine Ketones (Negative) mg/dL Urine Blood (Negative) Urine Nitrite (Negative) Urine Bilirubin (Negative) Urine Urobilinogen (Normal) mg/dL Ur Leukocyte Esterase (Negative) Urine Microscopic RBC (0-3) per hpf Urine Microscopic WBC (0-3) per hpf Urine Bacteria (None-Few) per hpf Hyaline Casts (None-Few) per lpf Urine Mucus (Few) Ur Culture Indicated? (NO) - Radiology Data Radiology results reviewed: Yes I reviewed the patient's radiology results.
[2019-04-17 18:26] LABS: Bilirubin,Urine Small (Negative); Blood,Urine Large (Negative); Clarity,Urine Cloudy (Clear); Color,Urine Red (Yellow); Glucose,Urine (UA) Normal (Normal); Ketones,Urine Trace mg/dL (Negative); Leukocyte Esterase,Urine Trace (Negative); Nitrite,Urine Positive (Negative); Protein,Urine 100 mg/dL (Neg-Trace); Urobilinogen,Urine Normal (Normal)
[2019-04-17 18:27] LABS: Bacteria,Urine Few per hpf (None-Few); Hyaline Casts,Urine Few per lpf (None-Few); Mucus,Urine Few (Few); RBC,Urine 50-100 per hpf (0-3)
[2019-04-17 18:46] LABS: Basophils % 0.3 %; Eosinophils # 0.1 K/mcL (0.0-0.6); Eosinophils % 0.8 %; Hematocrit 37.4 % (35.3-44.9); Hemoglobin 12.1 g/dL (11.5-15.4); Immature Granulocytes % 0.2 % (0-4); Lymphocytes # 1.2 K/mcL (0.6-4.6); Lymphocytes % 19.2 %; Mean Corpuscular HGB Conc 32.4 g/dL (31.6-35.5); Mean Corpuscular Hemoglobin 29.8 pg (28.0-33.3); Mean Corpuscular Volume 92.1 fL (83.0-100.0); Monocytes # 0.4 K/mcL (0.0-1.3); Monocytes % 6.7 %; Neutrophils # 4.5 K/mcL (1.6-8.9); Platelet Count 262 K/mcL (140-400); Red Blood Count 4.06 M/mcL (3.82-4.97); Red Cell Distribution Width 13.5 % (11.5-14.5); Segmented Neutrophils % 72.8 %; White Blood Count 6.1 K/mcL (4.3-11.1)
[2019-04-17 19:05] LABS: BUN/Creatinine Ratio 13 (6-26); Blood Urea Nitrogen 12 mg/dL (6-20); Calcium 8.9 mg/dL (8.6-10.3); Carbon Dioxide 21 mEq/L (23-29); Chloride 107 mEq/L (98-107); Glucose 134 mg/dL (70-105); Osmolality,Calculated 290 (280-300); Potassium 3.4 mEq/L (3.5-5.1); Sodium 139 mEq/L (136-145); eGFR For African Americans > 60 (> 60); eGFR For Non-African Americans > 60 (> 60)
[2019-04-17] MEDS ORDERED: *HR* FentaNYL (PF) 100 MCG/2 ML VIAL IVP ONE (19:48)
[2019-04-17] MEDS ORDERED: Ondansetron 4 MG/2 ML VIAL IVP PRN (21:34)
[2019-04-17] MEDS ORDERED: *HR* OxyCODONE Immed Rel 5 MG TABLET PO PRN (21:34)
[2019-04-17] MEDS ORDERED: Naloxone 0.4 MG/ML INJ IVP PRN (21:34)
[2019-04-17] MEDS: *HR* OxyCODONE Immed Rel 5 MG TABLET PO PRN (22:15)
[2019-04-17] MEDS: Gabapentin 400 MG CAPSULE PO SCH (22:22)
[2019-04-17] MEDS: 0.9 % Sodium Chloride 1,000 ML IVC SCH (22:23)
[2019-04-17] MEDS: *HR* Promethazine 25 MG/ML VIAL IVP PRN (22:56)
[2019-04-17] MEDS: *HR* HYDROmorphone (PF) 1 MG/ML SYRINGE IVP PRN (22:57)
[2019-04-18] MEDS: *HR* Promethazine 25 MG/ML VIAL IVP PRN ×2 (03:22→07:34)
[2019-04-18] MEDS: *HR* HYDROmorphone (PF) 1 MG/ML SYRINGE IVP PRN ×3 (03:22→19:56)
[2019-04-18] MEDS: Lisinopril 20 MG TABLET PO SCH (04:21)
[2019-04-18] MEDS: Levothyroxine 25 MCG TABLET PO SCH (07:34)
[2019-04-18] MEDS: Gabapentin 400 MG CAPSULE PO SCH ×3 (09:59→19:54)
[2019-04-18] MEDS: Isosorbide MONOnitrate (24 HR) 30 MG TAB.ER.24H PO SCH (10:00)
[2019-04-18] MEDS: cefTRIAXone 1,000 MG in 0.9 % Sodium Chloride Mini Bag 100 ML IVPB SCH (10:00)
[2019-04-18] MEDS: 0.9 % Sodium Chloride 1,000 ML IVC SCH (11:16)
--- NOTE | 2019-04-18 13:31 | Internal Med History&Physical ---
Date of Encounter: 04/18/19 Time of Encounter: 12:30 Assessment and Plan (1) Urinary tract infection Current visit: No Status: Acute She has been started on IV Rocephin empirically. Lactobacillus will be added. Urine culture has been ordered. Qualifiers: Urinary tract infection type: acute pyelonephritis Qualified Code(s): N10 - Acute pyelonephritis (2) Hypokalemia Current visit: No Status: Acute Possibly secondary to vomiting. IV fluids with supplemental potassium will be given. (3) Seizures Current visit: No Status: Acute Continue Zonegran and Neurontin. (4) Vomiting Current visit: No Status: Acute Anti-emetics will be given as needed. IV fluids have been ordered. Qualifiers: Vomiting type: unspecified Vomiting Intractability: non-intractable Nausea presence: with nausea Qualified Code(s): R11.2 - Nausea with vomiting, unspecified Internal Medicine - H&P: HPI Chief complaint: Abdominal pain, vomiting, UTI Admitted From: Emergency Dept Plans for Post Hospital Care: Home History of present illness: Ms. Franco is a 54 year old female came to emergency room complaining of daily nonbloody vomiting since discharge from [facility] 04/05/2019. She reports being hospitalized there with UTI. She had follow-up appointment with outpatient [facility] urology on 04/07/2019 to discuss possible left nephrectomy for recurrent UTIs. She has chronic hydronephrosis of the left kidney with severe cortical atrophy. She was placed on Keflex 250 mg daily for suppressive antibiotic therapy following completion of acute course antibiotics after [facility] discharge. She was evaluated in emergency room and was found to have possible pyelonephritis. She was admitted to [facility] floor for ongoing care needs. She states she vomited earlier today. She has ongoing pain in her lower abdominal area and left flank. She reports a diagnosis of OAB but denies other kidney or bladder disorders. Past Med Surg Social Fam HX - Past Medical History Medical history: asthma, COPD, coronary artery disease, CVA, diabetes, GERD, hyperlipidemia, hypertension, myocardial infarction, renal disease, seizures, thyroid disease, other Additional medical history: lupus Psychiatric history: anxiety, depression - Past Surgical History Surgical History: breast surgery, orthopedic, other, other Additional surgical history: cyst removal right breast. partial toe amputation. carpal tunnel left hand - Social History Smoking Status: Former smoker Smokeless Tobacco Status: No Alcohol use: none Drug use: none - Family History Mother Living Status: Hx Family Cardiac Disorders: Yes (WA) Hx Family GI Disorders: Yes (C DIFF COLITIS) Hx Family Endocrine Disorder: Yes (dm(ii)) Father Living Status: Hx Family Cardiac Disorders: Yes (WA) Sister Living Status: Hx Family Cardiac Disorders: Yes (HTN) Hx Family Cancer: Yes (colon cancer) Hx Family Endocrine Disorder: Yes (DM(II), obesity) Hx Family Neurologic Disorders: Yes (Epilepsy) Brother Hx Family Cardiac Disorders: Yes (HTN) Hx Family Endocrine Disorder: Yes (DM(II)) Son Living Status: Still Living Hx Family Neuromuscular Disorders: Yes (CMT ([id number])) Daughter Adopted: No Living Status: Still Living Hx Family Cardiac Disorders: Yes (Htn) Hx Family Endocrine Disorder: Yes (diabetes) Hx Family Neuromuscular Disorders: Yes (CMT) Internal Medicine - H&P: Meds Clopidogrel Bisulfate [Plavix] 75 mg PO DAILY 09/18/17 [History] Cyanocobalamin (B-12) [Vitamin B12] 1,000 mcg IM QMONTH 09/18/17 [History] Docusate [Colace] 100 mg PO DAILY 09/18/17 [History] Duloxetine HCl [Cymbalta] 60 mg PO DAILY 09/18/17 [History] Gabapentin [Neurontin] 800 mg PO BID 09/18/17 [History] Isosorbide MONOnitrate (24 HR) [Imdur] 30 mg PO DAILY 09/18/17 [History] Levothyroxine [Synthroid] 50 mcg PO 0630 09/18/17 [History] Linaclotide [Linzess] 72 mcg PO DAILY 09/18/17 [History] Lisinopril [Zestril] 40 mg PO DAILY 09/18/17 [History] Metoprolol [Lopressor] 25 mg PO BID 09/18/17 [History] Ranitidine HCl [Acid Gas Stove Servicer Helper] 150 mg PO HS 09/18/17 [History] Simvastatin [Zocor] 40 mg PO HS 09/18/17 [History] Tramadol HCl [Ultram] 50 mg PO QID PRN 09/18/17 [History] Zonisamide [Zonegran] 200 mg PO HS 09/18/17 [History] Tizanidine HCl [Zanaflex] 2 mg PO TID PRN 10/13/18 [History] diazePAM [Valium] 2 mg PO BID PRN 10/13/18 [History] Pantoprazole Sodium [Protonix] 20 mg PO DAILY 03/05/19 [History] Tolterodine Tartrate [Detrol] 2 mg PO BID 03/05/19 [History] Cyanocobalamin (Vitamin B-12) [B-12] 1,000 mcg PO DAILY 03/06/19 [History] Ergocalciferol (VITAMIN D2) [Vitamin D2] 50,000 units PO MO 03/06/19 [History] Fluticasone Propionate Nasal [Flonase] 50 mcg NS BID 03/06/19 [History] Norethindrone Acetate 5 mg PO DAILY 03/06/19 [History] Ondansetron HCl [Zofran] 4 mg PO TID PRN 03/06/19 [History] Cefdinir [Omnicef] 300 mg PO BID #14 capsule 03/07/19 [Rx] Clotrimazole 1% CRM [Lotrimin 1%] 1 appl TP BID #2 tube 03/07/19 [Rx] Lactobacillus Acidophilus [Acidophilus] 1 each PO BID #20 capsule 03/07/19 [Rx] Allergy/AdvReac Type Severity Reaction Status Date / Time Penicillins [PCN] AdvReac Intermediate Gastrointestinal Verified 03/06/19 21:14 Upset, Hives aspirin [ASA] AdvReac Mild Gastrointestinal Verified 03/06/19 21:14 Upset ciprofloxacin AdvReac Gastrointestinal Verified 03/06/19 21:14 Upset latex AdvReac See Verified 03/06/19 21:14 Comments rice AdvReac Gastrointestinal Verified 03/06/19 21:14 Upset All Systems PM: A 10-system review of systems was performed and is negative for pertinent f indings except as documented above in the HPI. Review of systems: Review of systems from her December 2017 [facility] hospitalization were reviewed and revised as below. Gen.: Her weight has decreased from 154.5 kg 12/28/2017 to present weight of 137.438 kg. Cardiovascular: She has history of hypertension. She claims she had an WA in 2012. She had a nonexercise stress test 03/23/2016 which showed no evidence of ischemia on EKG. Perfusion imaging showed a small sized mild to moderate intensity reversible defect in the basal to mid inferolateral segments and apical segments possibly due to ischemia. Cardiology did not feel further cardiac workup such as left heart catheter was indicated. Echocardiogram done 03/23/2016 showed LVEF 65% without diastolic dysfunction seen. There was moderate aortic stenosis with calcification of aortic valve leaflets. There was mild MR. She denies DVT or pulmonary embolus. Respiratory: She smoked from age [age]. She denies known chronic lung disease. She had a sleep study 03/24/2015 which showed mild DARIA. She wears CPAP at [facility]. GI: She has GERD. She has no known disorders of her liver gallbladder or exocrine pancreas. She had colonoscopy 2014 which was negative per her report. : As per history of present illness Neurologic: She claims she had a CVA in 2014 resulting in right arm and leg weakness. She typically uses a cane or walker for ambulation. She reports she developed seizures approximately 3 years ago but does not know the type. She states she follows with [facility] neurology. Endocrine: She was diagnosed with DM 2 approximately age 31. She has hypothyroidism and hyperlipidemia Hematology/oncology: She has had anemia in the past which has resolved. She denies internal malignancies or other blood disorders. Psychiatric: She has anxiety and depression. She denies other mental health diagnosis. Musk skeletal: She reports being diagnosed with SLE but does not follow with a physician for this and does not know specific details. She has DJD. She denies other bone joint or muscle disorders. - Constitutional Vitals: Temp Pulse Resp BP Pulse Ox 98.0 F 73 18 108/74 99 04/18/19 11:09 04/18/19 11:09 04/18/19 11:09 04/18/19 11:09 04/18/19 11:09 Exam: Gen.: She is a well-developed morbidly obese female lying in bed who appears in no acute distress HEENT: Head is atraumatic and normocephalic. Eyes: EOMI. There is no scleral icterus. Mouth: Mucosa is moist. Neck: Supple and nontender. There is no thyromegaly or adenopathy noted. Heart: Regular without murmurs gallops or ectopics Lungs: No wheezes or crackles are heard. Back: Straight with no significant flank tenderness to percussion. Abdomen: She has a very large abdomen. It is soft and nontender. No masses or guarding are noted. Extremities: There is no cyanosis edema or clubbing noted. Dorsalis pedis and posterior tibial pulses are trace palpable bilaterally. Neurologic: Mental status: She is talkative and a good historian. Cranial nerves: Smile is symmetric. Forehead wrinkles bilaterally. Tongue protrudes midline. EOMI. Motor: There is no pronator drift. Cerebellar: Finger to nose is intact bilaterally. Skin: Warm and dry Internal Med - H&P Results - Labs CBC & Chem 7: 04/17/19 18:37 04/17/19 18:37 Labs: Short CBC 04/17/19 Range/Units 18:37 WBC 6.1 (4.3-11.1) K/mcL Hgb 12.1 (11.5-15.4) g/dL Hct 37.4 (35.3-44.9) % Plt Count 262 (140-400) K/mcL Neutrophils # 4.5 (1.6-8.9) K/mcL BMP 04/17/19 18:37 Sodium 139 Potassium 3.4 L Chloride 107 Carbon Dioxide 21 L BUN 12 Creatinine 0.92 Glucose 134 H Calcium 8.9 Urine 04/17/19 Range/Units 18:05 Urine Color Red A (Yellow) Urine Clarity Cloudy A (Clear) Urine pH 6.0 (5.0-8.0) pH Units Ur Specific [place] 1.030 H (1.010-1.025) Urine Protein 100 H (Neg-Trace) mg/dL Urine Glucose (UA) Normal (Normal) mg/dL - Impressions ITS Impressions Abdomen/Pelvis CT 04/17/19 18:32 IMPRESSION: Severe left renal atrophy with hydronephrosis, with the hydronephrosis improved from the prior exam. There is again some perinephric stranding and periureteric stranding as before. No obstructing lesion or calculus identified. Clinical correlation is recommended. No pathology in the pelvis is seen to explain the pelvic pain. D/ / Ankit Arenas / Ankit Arenas Interpreting Provider: Ankit Arenas
[2019-04-18] MEDS: 0.9 % Sodium Chloride w KCl 20 MEQ/1,000 ML MLS IVC SCH (15:48)
[2019-04-18] MEDS: Lactobacillus 1 EACH CAP.SPRINK PO SCH (19:54)
[2019-04-19] MEDS: 0.9 % Sodium Chloride w KCl 20 MEQ/1,000 ML MLS IVC SCH ×3 (01:50→16:37)
[2019-04-19] MEDS: Levothyroxine 25 MCG TABLET PO SCH (05:27)
[2019-04-19] MEDS: Gabapentin 400 MG CAPSULE PO SCH ×3 (05:28→23:37)
[2019-04-19 07:37] LABS: Basophils % 0.5 %; Eosinophils # 0.2 K/mcL (0.0-0.6); Eosinophils % 3.3 %; Hematocrit 34.1 % (35.3-44.9); Hemoglobin 10.4 g/dL (11.5-15.4); Immature Granulocytes % 0.3 % (0-4); Lymphocytes # 1.4 K/mcL (0.6-4.6); Lymphocytes % 25.1 %; Mean Corpuscular HGB Conc 30.5 g/dL (31.6-35.5); Mean Corpuscular Hemoglobin 30.1 pg (28.0-33.3); Mean Corpuscular Volume 98.8 fL (83.0-100.0); Mean Platelet Volume 9.9 fL (9.4-12.4); Monocytes # 0.4 K/mcL (0.0-1.3); Neutrophils # 3.7 K/mcL (1.6-8.9); Platelet Count 206 K/mcL (140-400); Red Blood Count 3.45 M/mcL (3.82-4.97); Red Cell Distribution Width 14.3 % (11.5-14.5); Segmented Neutrophils % 63.8 %; White Blood Count 5.7 K/mcL (4.3-11.1)
[2019-04-19] MEDS: cefTRIAXone 1,000 MG in 0.9 % Sodium Chloride Mini Bag 100 ML IVPB SCH (08:03)
[2019-04-19 08:04] LABS: Calcium 7.7 mg/dL (8.6-10.3); Magnesium 1.1 mg/dL (1.6-2.6); Phosphorous 4.9 mg/dL (2.7-4.5); Potassium 4.1 mEq/L (3.5-5.1)
[2019-04-19] MEDS: Lisinopril 20 MG TABLET PO SCH (08:05)
[2019-04-19] MEDS: Isosorbide MONOnitrate (24 HR) 30 MG TAB.ER.24H PO SCH (08:05)
[2019-04-19] MEDS: Lactobacillus 1 EACH CAP.SPRINK PO SCH ×2 (08:05→19:55)
[2019-04-19] MEDS: *HR* OxyCODONE Immed Rel 5 MG TABLET PO PRN (12:40)
--- NOTE | 2019-04-19 14:43 | Internal Med Progress Note ---
Date of Encounter: 04/19/19 Time of Encounter: 09:25 - Assessment and plan (1) Urinary tract infection Current Visit: No Status: Acute Assessment and plan: April 19. Urine culture report shows > 100,000 mixed organisms. WBC remains normal with no left shift present. Continue IV Rocephin with lactobacillus. Qualifiers: Urinary tract infection type: acute pyelonephritis Qualified Code(s): N10 - Acute pyelonephritis (2) Hypokalemia Current Visit: No Status: Acute Assessment and plan: April 19. Potassium normal at 4.1. Continue IV fluids with supplemental potassium. Recheck labs in a.m. (3) Seizures Current Visit: No Status: Acute Assessment and plan: April 19. Continue Zonegran and Neurontin. (4) Vomiting Current Visit: No Status: Acute Assessment and plan: April 19. Continue anti-emetics as needed. Qualifiers: Vomiting type: unspecified Vomiting Intractability: non-intractable Nausea presence: with nausea Qualified Code(s): R11.2 - Nausea with vomiting, unspecified (5) Acute kidney injury Current Visit: Yes Status: Acute Assessment and plan: April 19. BUN and creatinine have risen to [address] of abdomen will be done. IV fluids will be continued. (6) Hypomagnesemia Current Visit: No Status: Acute Assessment and plan: April 19. Magnesium level low at 1.1. Magnesium sulfate will be given. (7) Anemia Current Visit: Yes Status: Acute Assessment and plan: April 19. Hemoglobin has decreased to 10.4. Suspect due in part to IV fluid administration. Anemia testing will be ordered in a.m. Qualifiers: Anemia type: unspecified type Qualified Code(s): D64.9 - Anemia, unspecified - Subjective Interval history: April 19. She has no new complaints. She still reports ongoing pain in her lower abdominal/perineal area and her back/left flank area. - Constitutional Vitals: Temp Pulse Resp BP Pulse Ox 98.3 F 91 17 116/77 94 04/19/19 07:52 04/19/19 07:52 04/19/19 07:52 04/19/19 07:52 04/19/19 07:52 Exam: She is resting comfortably in bed and appears in no acute distress. Her affect is overall cheerful. I reviewed her medications and lab results. Internal Medicine: Result - Labs CBC & Chem 7: 04/19/19 06:55 04/19/19 06:55 Labs: Short CBC 04/19/19 Range/Units 06:55 WBC 5.7 (4.3-11.1) K/mcL Hgb 10.4 L D (11.5-15.4) g/dL Hct 34.1 L (35.3-44.9) % Plt Count 206 (140-400) K/mcL Neutrophils # 3.7 (1.6-8.9) K/mcL BMP 04/19/19 06:55 Sodium 138 Potassium 4.1 Chloride 111 H Carbon Dioxide 16 L BUN 24 H Creatinine 2.35 H Glucose 136 H Calcium 7.7 L - Impressions Impressions Abdomen/Pelvis CT 04/19/19 14:18 IMPRESSION: 1. Again noted is an atrophic left kidney with mild hydronephrosis but otherwise improved since earlier exam. There is persistent stranding along the left kidney and left ureter. No obstructing calculus is identified. Findings may be infectious or inflammatory in etiology. 2. Mild retroperitoneal and pelvic adenopathy, nonspecific and likely reactive. 3. No other acute abdominal or pelvic abnormality on this unenhanced study. D/ / 04/19/2019 14:26:41 Pat Lackey MD / hiram Interpreting Provider: Pat Lackey MD Consult Discharge Plan - Plan Referrals: Franklyn Welch DO [Primary Care Provider] - 1 week
[2019-04-19] MEDS: Fluconazole 100 MG TABLET PO SCH (16:36)
[2019-04-19] MEDS: Ketoconazole 2% CRM 15 GM TUBE TP SCH (19:55)
[2019-04-19] MEDS: *HR* HYDROmorphone (PF) 1 MG/ML SYRINGE IVP PRN (20:09)
[2019-04-19] MEDS ORDERED: Nitroglycerin 0.4 MG TAB.SUBL SL PRN (23:25)
[2019-04-19] MEDS ORDERED: Nitroglycerin 0.4 MG TAB.SUBL SL ONE (23:29)
[2019-04-20 00:09] LABS: Basophils % 0.4 %; Eosinophils # 0.2 K/mcL (0.0-0.6); Eosinophils % 3.2 %; Hematocrit 32.4 % (35.3-44.9); Hemoglobin 10.3 g/dL (11.5-15.4); Immature Granulocytes % 0.2 % (0-4); Lymphocytes # 1.6 K/mcL (0.6-4.6); Lymphocytes % 28.4 %; Mean Corpuscular HGB Conc 31.8 g/dL (31.6-35.5); Mean Corpuscular Hemoglobin 30.5 pg (28.0-33.3); Mean Corpuscular Volume 95.9 fL (83.0-100.0); Monocytes # 0.4 K/mcL (0.0-1.3); Monocytes % 6.9 %; Neutrophils # 3.4 K/mcL (1.6-8.9); Platelet Count 215 K/mcL (140-400); Red Blood Count 3.38 M/mcL (3.82-4.97); Red Cell Distribution Width 14.1 % (11.5-14.5); Segmented Neutrophils % 60.9 %; White Blood Count 5.6 K/mcL (4.3-11.1)
[2019-04-20 00:22] LABS: Albumin 3.2 g/dL (3.5-5.7); Bilirubin,Total 0.2 mg/dL (0.3-1.0); Calcium 7.8 mg/dL (8.6-10.3); Globulin 3.1 g/dL (2.4-3.5); Potassium 4.2 mEq/L (3.5-5.1); Total Protein 6.3 g/dL (6.4-8.9)
[2019-04-20] MEDS ORDERED: *HR* Rivaroxaban 10 MG TABLET PO ONE (00:56)
[2019-04-20] MEDS: 0.9 % Sodium Chloride w KCl 20 MEQ/1,000 ML MLS IVC SCH (04:28)
[2019-04-20] MEDS: Levothyroxine 25 MCG TABLET PO SCH (06:48)
[2019-04-20] MEDS: Gabapentin 400 MG CAPSULE PO SCH (06:48)
[2019-04-20] MEDS: Lactobacillus 1 EACH CAP.SPRINK PO SCH (08:56)
[2019-04-20] MEDS: Isosorbide MONOnitrate (24 HR) 30 MG TAB.ER.24H PO SCH (08:56)
[2019-04-20] MEDS: Lisinopril 20 MG TABLET PO SCH (08:56)
[2019-04-20] MEDS: Fluconazole 100 MG TABLET PO SCH (08:56)
[2019-04-20] MEDS: Ketoconazole 2% CRM 15 GM TUBE TP SCH (08:56)
[2019-04-20] MEDS: cefTRIAXone 1,000 MG in 0.9 % Sodium Chloride Mini Bag 100 ML IVPB SCH (08:57)
[2019-04-20 09:28] VITALS: BP 140/93
[2019-04-20 09:52] LABS: Folate 4.3 ng/mL (3.0-16.0)
[2019-04-20 11:52] LABS: Basophils % 0.3 %; Eosinophils # 0.1 K/mcL (0.0-0.6); Eosinophils % 1.4 %; Hematocrit 34.9 % (35.3-44.9); Hemoglobin 10.9 g/dL (11.5-15.4); Immature Granulocytes % 0.3 % (0-4); Lymphocytes # 1.4 K/mcL (0.6-4.6); Lymphocytes % 21.1 %; Mean Corpuscular HGB Conc 31.2 g/dL (31.6-35.5); Mean Corpuscular Hemoglobin 30.3 pg (28.0-33.3); Mean Corpuscular Volume 96.9 fL (83.0-100.0); Mean Platelet Volume 9.5 fL (9.4-12.4); Monocytes # 0.4 K/mcL (0.0-1.3); Monocytes % 5.4 %; Neutrophils # 4.6 K/mcL (1.6-8.9); Platelet Count 206 K/mcL (140-400); Segmented Neutrophils % 71.5 %; White Blood Count 6.5 K/mcL (4.3-11.1)
[2019-04-20 12:09] LABS: Calcium 8.2 mg/dL (8.6-10.3); Potassium 4.4 mEq/L (3.5-5.1)
--- NOTE | 2019-04-20 13:41 | Discharge Summary ---
Date of Encounter: 04/20/19 Time of Encounter: 13:30 - Discharge Diagnosis (1) Vomiting Priority: Primary Status: Resolved Qualifiers: Vomiting type: unspecified Vomiting Intractability: non-intractable Nausea presence: with nausea Qualified Code(s): R11.2 - Nausea with vomiting, unspecified (2) Urinary tract infection Priority: Secondary Status: Acute Qualifiers: Urinary tract infection type: acute pyelonephritis Qualified Code(s): N10 - Acute pyelonephritis (3) Hypokalemia Priority: Secondary Status: Resolved (4) Seizures Priority: Secondary Status: Acute (5) Acute kidney injury Priority: Secondary Status: Acute (6) Hypomagnesemia Priority: Secondary Status: Acute (7) Anemia Priority: Secondary Status: Acute Qualifiers: Anemia type: unspecified type Qualified Code(s): D64.9 - Anemia, unspecifi ed Hospital course: Ms. Franco is a 54 year old female who came to emergency room complaining of daily nonbloody vomiting since discharge from [facility] 04/05/2019. She reports being hospitalized there with UTI. She had follow-up appointment with outpatient [facility] urology on 04/07/2019 to discuss possible left nephrectomy for recurrent UTIs. She has chronic hydronephrosis of the left kidney with severe cortical atrophy. She was placed on Keflex 250 mg daily for suppressive antibiotic therapy following completion of acute course antibiotics after [facility] discharge. She was e valuated in emergency room and was found to have possible pyelonephritis. She was admitted to [facility] floor for ongoing care needs. Initial orders were written by the emergency room physician. I saw her on April 18 and performed a history and physical. She was started empirically on IV Rocephin with lactobacillus. Urine culture showed mixed organisms. She remained afebrile. WBC remained WNL with no left shift on differential. I did not think clinically she had pyelonephritis. She had no significant vomiting after the first hospital day and was able to tolerate adequate amount of food and fluid intake. Creatinine morteza to 2.35 on labs the morning of April 19. Repeat labs the evening of April 19 showed significant decrease to 1.52 and further decrease on morning of April 20 to 1.17. Her PCP can continue to monitor. Repeat abdominal CT on April 19 showed no new pathology. Etiology of her creatinine change was not determined. Supplemental potassium was given and hypokalemia resolved. On April 20 I felt she was stable for discharge home. She will follow with her PCP Dr. Welch within 1 week. - Time Spent with Patient Total time spent providing and/or coordinating discharge services: - Discharge Medications Prescriptions: Continued Clopidogrel Bisulfate [Plavix] 75 mg PO DAILY Zonisamide [Zonegran] 200 mg PO HS Lisinopril [Zestril] 40 mg PO DAILY Tramadol HCl [Ultram] 50 mg PO QID PRN PRN Reason: Pain Linaclotide [Linzess] 72 mcg PO DAILY Isosorbide MONOnitrate (24 HR) [Imdur] 30 mg PO DAILY Metoprolol [Lopressor] 25 mg PO BID Levothyroxine [Synthroid] 50 mcg PO 0630 Cyanocobalamin (B-12) [Vitamin B12] 1,000 mcg IM QMONTH Simvastatin [Zocor] 40 mg PO HS Ranitidine HCl [Acid Aircraft Armorer] 150 mg PO HS Duloxetine HCl [Cymbalta] 60 mg PO DAILY Docusate [Colace] 100 mg PO DAILY diazePAM [Valium] 2 mg PO BID PRN PRN Reason: Anxiety Tizanidine HCl [Zanaflex] 2 mg PO TID PRN PRN Reason: Muscle Spasm Tolterodine Tartrate [Detrol] 2 mg PO BID Pantoprazole Sodium [Protonix] 20 mg PO DAILY Cyanocobalamin (Vitamin B-12) [B-12] 1,000 mcg PO DAILY Ergocalciferol (VITAMIN D2) [Vitamin D2] 50,000 units PO MO Fluticasone Propionate Nasal [Flonase] 50 mcg NS BID Norethindrone Acetate 5 mg PO DAILY Ondansetron HCl [Zofran] 4 mg PO TID PRN PRN Reason: Nausea Clotrimazole 1% CRM [Lotrimin 1%] 1 appl TP BID #2 tube Lactobacillus Acidophilus [Acidophilus] 1 each PO BID #20 capsule Changed Gabapentin [Neurontin] 800 mg PO Q8H #0 Discontinued Cefdinir [Omnicef] 300 mg PO BID #14 capsule Home Medications: Clopidogrel Bisulfate [Plavix] 75 mg PO DAILY 09/18/17 [History] Cyanocobalamin (B-12) [Vitamin B12] 1,000 mcg IM QMONTH 09/18/17 [History] Docusate [Colace] 100 mg PO DAILY 09/18/17 [History] Duloxetine HCl [Cymbalta] 60 mg PO DAILY 09/18/17 [History] Isosorbide MONOnitrate (24 HR) [Imdur] 30 mg PO DAILY 09/18/17 [History] Levothyroxine [Synthroid] 50 mcg PO 0630 09/18/17 [History] Linaclotide [Linzess] 72 mcg PO DAILY 09/18/17 [History] Lisinopril [Zestril] 40 mg PO DAILY 09/18/17 [History] Metoprolol [Lopressor] 25 mg PO BID 09/18/17 [History] Ranitidine HCl [Acid Aircraft Armorer] 150 mg PO HS 09/18/17 [History] Simvastatin [Zocor] 40 mg PO HS 09/18/17 [History] Tramadol HCl [Ultram] 50 mg PO QID PRN 09/18/17 [History] Zonisamide [Zonegran] 200 mg PO HS 09/18/17 [History] Tizanidine HCl [Zanaflex] 2 mg PO TID PRN 10/13/18 [History] diazePAM [Valium] 2 mg PO BID PRN 10/13/18 [History] Pantoprazole Sodium [Protonix] 20 mg PO DAILY 03/05/19 [History] Tolterodine Tartrate [Detrol] 2 mg PO BID 03/05/19 [History] Cyanocobalamin (Vitamin B-12) [B-12] 1,000 mcg PO DAILY 03/06/19 [History] Ergocalciferol (VITAMIN D2) [Vitamin D2] 50,000 units PO MO 03/06/19 [History] Fluticasone Propionate Nasal [Flonase] 50 mcg NS BID 03/06/19 [History] Norethindrone Acetate 5 mg PO DAILY 03/06/19 [History] Ondansetron HCl [Zofran] 4 mg PO TID PRN 03/06/19 [History] Clotrimazole 1% CRM [Lotrimin 1%] 1 appl TP BID #2 tube 03/07/19 [Rx] Lactobacillus Acidophilus [Acidophilus] 1 each PO BID #20 capsule 03/07/19 [Rx] Gabapentin [Neurontin] 800 mg PO Q8H #0 04/20/19 [Rx] Allergies/Adverse Reactions: Allergy/AdvReac Type Severity Reaction Status Date / Time Penicillins [PCN] AdvReac Intermediate Gastrointestinal Verified 03/06/19 21:14 Upset, Hives aspirin [ASA] AdvReac Mild Gastrointestinal Verified 03/06/19 21:14 Upset ciprofloxacin AdvReac Gastrointestinal Verified 03/06/19 21:14 Upset latex AdvReac See Verified 03/06/19 21:14 Comments rice AdvReac Gastrointestinal Verified 03/06/19 21:14 Upset Date of admission: 04/17/19 20:23 Primary care physician: Franklyn Welch DO - Constitutional Vitals: Temp Pulse Resp BP Pulse Ox 97.6 F 91 16 140/93 99 04/20/19 08:00 04/20/19 08:00 04/20/19 08:00 04/20/19 08:00 04/20/19 08:00 - Patient Status Disposition: Home, Self-Care Condition: Fair - Discharge Instructions Follow Up With: Franklyn Welch DO [Primary Care Provider] - 1 week - Diet and Activity Activity: resume usual activities as tolerated Diet: advance to your usual diet
== END 2019-04-20 15:40 | disposition home or self-care (01) ==
LOC: EMEROOPIK 17:45 → INPPIK 17:45
PROVIDERS: ADMIT Internal Medicine; ATTEND Internal Medicine